=== PATIENT | male | born 1970 | race Caucasian/White ===

== ENCOUNTER 2022-03-26 07:42 | Day surgery (SDC) | payer BC ==
[2022-03-26] MEDS ORDERED: Lactated Ringers 1,000 ML IV SCH (09:00)
[2022-03-26] MEDS ORDERED: Sodium Chloride 0.9% 10 ML Syringe FLUSH PRN (09:00)
[2022-03-26] MEDS ORDERED: Midazolam 1 MG/ML 2 ML SDV ONE (10:39)
[2022-03-26] MEDS ORDERED: Propofol 200 MG/20 ML SDV ONE (10:39)
== END 2022-03-26 12:32 | disposition home or self-care (01) ==
LOC: KA.SDS 07:42
PROVIDERS: ATTEND Family Medicine
DX: Z12.11 Encounter for screening for malignant neoplasm of colon (principal); D12.6 Benign neoplasm of colon, unspecified; E66.01 Morbid (severe) obesity due to excess calories; M79.10 Myalgia, unspecified site; Z79.899 Other long term (current) drug therapy; Z87.891 Personal history of nicotine dependence; Z68.41 Body mass index [BMI] 40.0-44.9, adult
CPT/HCPCS: 00811; J2250; J2704; J7120